=== PATIENT | male | born 1940 ===

== ENCOUNTER 2019-02-24 13:38 | Outpatient (RCR) | payer OTHER, SELFPAY | END 2019-02-25 00:01 | LOC: WOUND 13:38 | PROVIDERS: Family Provider Family Medicine; Visit Provider Nurse Practitioner Family | DX: I96 Gangrene, not elsewhere classified (principal); L89.610 Pressure ulcer of right heel, unstageable | CPT/HCPCS: 11042 ×4; 87070; 87077; 87176; 87186 ×3; 87205 ==

== ENCOUNTER 2019-03-12 13:09 | Outpatient (RCR) | payer OTHER, SELFPAY | END 2019-03-28 23:59 | disposition home or self-care (01) | LOC: WOUND 13:09 | PROVIDERS: Family Provider Family Medicine; PCP Family Medicine; Visit Provider Nurse Practitioner Family | DX: I96 Gangrene, not elsewhere classified (principal); L89.610 Pressure ulcer of right heel, unstageable | CPT/HCPCS: 11042 ==

== ENCOUNTER 2019-04-16 13:02 | Outpatient (RCR) | payer OTHER, SELFPAY | END 2019-04-26 23:59 | disposition home or self-care (01) | LOC: WOUND 13:02 | PROVIDERS: Family Provider Family Medicine; PCP Family Medicine; Visit Provider Nurse Practitioner Family | DX: L89.610 Pressure ulcer of right heel, unstageable (principal) | CPT/HCPCS: 11042 ==

== ENCOUNTER 2019-05-14 10:13 | Outpatient (RCR) | payer OTHER, SELFPAY | END 2019-05-27 23:59 | disposition home or self-care (01) | LOC: WOUND 10:13 | PROVIDERS: Family Provider Family Medicine; PCP Family Medicine; Visit Provider Emergency Medicine | DX: I96 Gangrene, not elsewhere classified (principal); L89.613 Pressure ulcer of right heel, stage 3 | CPT/HCPCS: 11042; 97597 ==

== ENCOUNTER → 2019-05-22 10:04 | Outpatient (BNVA) | payer MEDICARE, SELFPAY | PROVIDERS: Family Provider Family Medicine; PCP Family Medicine; Visit Provider Family Medicine | DX: I11.0 Hypertensive heart disease with heart failure (principal); I50.9 Heart failure, unspecified; E83.42 Hypomagnesemia; E11.9 Type 2 diabetes mellitus without complications; C79.89 Secondary malignant neoplasm of other specified sites; J44.9 Chronic obstructive pulmonary disease, unspecified | CPT/HCPCS: 80053; 83036; 83735; 85025 ==

== ENCOUNTER 2019-06-23 10:33 | Outpatient (RCR) | payer MEDICARE, SELFPAY | END 2019-06-26 23:59 | disposition home or self-care (01) | LOC: WOUND 10:33 | PROVIDERS: Family Provider Family Medicine; PCP Family Medicine; Visit Provider Emergency Medicine | DX: I96 Gangrene, not elsewhere classified (principal); L89.613 Pressure ulcer of right heel, stage 3; I87.2 Venous insufficiency (chronic) (peripheral); L97.822 Non-pressure chronic ulcer of other part of left lower leg with fat layer exposed | CPT/HCPCS: 11042; 87070; 87077; 87176; 87186; 87205 ==

== ENCOUNTER 2019-06-30 10:35 | Outpatient (CLI) | payer MEDICARE, SELFPAY | END 2019-06-30 10:36 | disposition home or self-care (01) | LOC: WOUND 13:37 | PROVIDERS: Family Provider Family Medicine; PCP Family Medicine; Visit Provider Emergency Medicine | DX: L89.613 Pressure ulcer of right heel, stage 3; I87.2 Venous insufficiency (chronic) (peripheral); L97.812 Non-pressure chronic ulcer of other part of right lower leg with fat layer exposed; L97.829 Non-pressure chronic ulcer of other part of left lower leg with unspecified severity | CPT/HCPCS: 11042 ==

== ENCOUNTER 2019-07-07 13:02 | Outpatient (CLI) | payer MEDICARE, SELFPAY | END 2019-07-07 13:03 | disposition home or self-care (01) | LOC: WOUND 13:03 | PROVIDERS: Family Provider Family Medicine; PCP Family Medicine; Visit Provider Nurse Practitioner Family | DX: I96 Gangrene, not elsewhere classified (principal); L89.613 Pressure ulcer of right heel, stage 3; I87.2 Venous insufficiency (chronic) (peripheral); L97.812 Non-pressure chronic ulcer of other part of right lower leg with fat layer exposed; L97.821 Non-pressure chronic ulcer of other part of left lower leg limited to breakdown of skin | CPT/HCPCS: G0463 ==

== ENCOUNTER 2019-07-28 13:09 | Outpatient (CLI) | payer MEDICARE, SELFPAY | END 2019-07-28 13:10 | disposition home or self-care (01) | LOC: WOUND 13:10 | PROVIDERS: Family Provider Family Medicine; PCP Family Medicine; Visit Provider Nurse Practitioner Family | DX: I96 Gangrene, not elsewhere classified (principal); L89.613 Pressure ulcer of right heel, stage 3; I87.2 Venous insufficiency (chronic) (peripheral); L97.812 Non-pressure chronic ulcer of other part of right lower leg with fat layer exposed | CPT/HCPCS: 11042 ==

== ENCOUNTER → 2019-08-07 11:37 | Outpatient (BNVA) | payer MEDICARE, SELFPAY | PROVIDERS: Family Provider Family Medicine; PCP Family Medicine; Visit Provider Family Medicine | DX: I11.0 Hypertensive heart disease with heart failure (principal); I50.22 Chronic systolic (congestive) heart failure; E11.9 Type 2 diabetes mellitus without complications; E83.42 Hypomagnesemia; C79.89 Secondary malignant neoplasm of other specified sites | CPT/HCPCS: 80048; 83036; 83735 ==

== ENCOUNTER 2019-08-21 13:03 | Outpatient (CLI) | payer MEDICARE, SELFPAY | END 2019-08-21 13:04 | disposition home or self-care (01) | LOC: WOUND 13:06 | PROVIDERS: Family Provider Family Medicine; PCP Family Medicine; Visit Provider Nurse Practitioner Family | DX: I96 Gangrene, not elsewhere classified (principal); L89.613 Pressure ulcer of right heel, stage 3 | CPT/HCPCS: 11042 ==

== ENCOUNTER 2019-09-25 13:07 | Outpatient (CLI) | payer MEDICARE, SELFPAY | END 2019-09-25 13:08 | disposition home or self-care (01) | LOC: WOUND 13:09 | PROVIDERS: Family Provider Family Medicine; PCP Family Medicine; Visit Provider Emergency Medicine | DX: E11.621 Type 2 diabetes mellitus with foot ulcer (principal); L97.522 Non-pressure chronic ulcer of other part of left foot with fat layer exposed; L89.613 Pressure ulcer of right heel, stage 3 | CPT/HCPCS: 11042 ==